=== PATIENT | female | born 1970 | race Caucasian/White ===

== ENCOUNTER 2017-08-24 18:28 | Emergency (ER) | payer MEDICAID ==
[~2017-08-24] VITALS: Ht 152.4 cm; Wt 77.0 kg
[2017-08-24] MEDS ORDERED: KETOROLAC TROMETHAMINE 60 MG/2 ML VIAL IM ONE (19:15)
[2017-08-24 20:00] VITALS: BP 129/74
== END 2017-08-24 20:42 | disposition home or self-care (01) ==
LOC: EMS 18:30
DX: S43.401A Unspecified sprain of right shoulder joint, initial encounter (principal); X58.XXXA Exposure to other specified factors, initial encounter; Y93.89 Activity, other specified; Y92.89 Other specified places as the place of occurrence of the external cause; Y99.8 Other external cause status
CPT/HCPCS: 73030; 96372; 99284; J1885